=== PATIENT | female | born 1955 | race Caucasian/White ===

== ENCOUNTER 2023-11-27 08:34 | Outpatient (CLI) | payer MEDICARE, OTHER ==
[2023-11-27] MEDS ORDERED: Iopamidol 300 61% 100 ML VIAL FS ONE (11:27)
== END 2023-11-27 08:35 | disposition home or self-care (01) ==
LOC: CSHCT 08:34
PROVIDERS: ATTEND Urology
DX: N28.1 Cyst of kidney, acquired (principal); N39.0 Urinary tract infection, site not specified; N15.1 Renal and perinephric abscess; N20.0 Calculus of kidney
CPT/HCPCS: 74170; 82565; Q9967